=== PATIENT | male | born 1965 | race Caucasian/White ===

== ENCOUNTER 2018-03-10 08:11 | Outpatient (CLI) | payer OTHER ==
--- NOTE | 2018-03-10 15:33 | MRI Report ---
EXAM: RIGHT ELBOW MRI WITHOUT CONTRAST EXAM DATE: 03/10/2018 10:04 AM. CLINICAL HISTORY: Pain in right elbow. COMPARISON: None. TECHNIQUE: Multiplanar, multisequence T1-weighted and fluid-sensitive sequences of the elbow without contrast. Other: None. FINDINGS: Bones: No fractures or subluxations. No marrow edema. No bone lesions. Articular Cartilage: Unremarkable. Ligaments: The ulnar collateral, lateral ulnar collateral, radial collateral, and annular ligaments a re intact. Tendons: Common extensor tendon shows a partial-thickness tear involving about 80% of the distal shorty chment. 20% of the proximal attachment remains and is normal. Common flexor tendon is normal. Distal biceps tendon shows a high-grade partial-thickness tear involving about 90-95% of the cross-sectional diameter of the tendon, there is about an 8 mm focal fluid-filled gap at a segment of the tendon at the lateral aspect. Surrounding soft tissue swelling and edema. Brachialis attachment shows some abno rmal signal but is intact. Triceps attachment is normal. Musculature: Musculotendinous edema is seen in the distal biceps mechanism. Other: The cubital tunnel and ulnar nerve are unremarkable. No effusion. Subcutaneous edema and swell ing is seen over the anterior medial aspect of the elbow. Some also seen within the supinator muscle . IMPRESSION: 1. High-grade partial-thickness tear involving about 90-95% of the cross-sectional diameter of the di stal biceps tendon near its attachment onto the radial tubercle, there is about an 8 mm focal fluid-f illed gap at the lateral aspect of the distal tendon. Surrounding soft tissue swelling and edema. 2. Common extensor tendon also shows a partial-thickness tear involving about 80% of the distal attac hment. 20% of the proximal attachment remains and is normal. 3. Collateral ligament complexes appear unremarkable. 4. Bones, articular surfaces have a normal appearance. [facility]CULOS[facility] SECTION Referring Provider Line: [phone] SITE ID: [id number]
== END 2018-03-10 08:12 | disposition home or self-care (01) ==
LOC: DI 08:11
PROVIDERS: ATTEND Family Medicine
DX: S46.211A Strain of muscle, fascia and tendon of other parts of biceps, right arm, initial encounter (principal); S56.511A Strain of other extensor muscle, fascia and tendon at forearm level, right arm, initial encounter

== ENCOUNTER 2019-01-12 21:44 | Emergency (ER) | payer OTHER ==
--- NOTE | 2019-01-12 22:19 | ED Physician Documentation ---
PD HPI OVERDOSE - Stated complaint Stated Complaint: OVER INGESTED MAGNESIUM CHLORIDE - Chief complaint Chief Complaint: General - History obtained from History obtained from: Patient - History of Present Illness Timing - onset: Today (within one hour of ED arrival) Subtance(s) ingested: Single Associated symptoms: NVD (mild nausea). No: Decreased responsiveness, Altered mental status, Agitated, Abdominal pain, Palpitations, Dyspnea, Diaphoresis Recently seen: Not recently seen - Additional information Additional information: patient presents with who is also registered as a patient for same c/o. Patient's takes magnesium chloride for migraines. Danica, her pr epared what he thought was an appropriate dose for both of them (he said he wanted to take some because he thought it would be healthy to do so). The magnesium was purchased in bulk from [employer]. He did not follow the instructions on the label and miscalculated the dose. Shortly after they both ingested the dose, he recalculated and realized he had taken too much. He calculates he took over 7 grams. He and I then calculated the amount and agree that he actually took 9.9 grams. He is asymptomatic except for mild nausea. Review of Systems Constitutional: reports: Sweats Cardiac: reports: Reviewed and negative Respiratory: reports: Reviewed and negative GI: reports: Nausea. denies: Abdominal Pain, Vomiting, Constipation, Diarrhea Neurologic: reports: Reviewed and negative PD PAST MEDICAL HISTORY - Past Medical History Past Medical History: No Cardiovascular: None Respiratory: Other Endocrine/Autoimmune: None GI: None : None HEENT: None Psych: None Musculoskeletal: None Derm: Eczema - Past Surgical History Past Surgical History: Yes General: Colonoscopy HEENT: Cataracts, Tonsil/Adenoidectomy - Present Medications Home Medications: Ambulatory Orders Medication Instructions Recorded Confirmed Loratadine [Claritin] 10 mg PO DAILY 04/17/14 04/18/14 Fluticasone [Flonase] 1 spray ONIEL DAILY 04/18/14 04/18/14 - Allergies Allergies/Adverse Reactions: Allergies Allergy/AdvReac Type Severity Reaction Status Date / Time No Known Drug Allergies Allergy Verified 04/17/14 14:02 - Social History Does the pt smoke?: No Smoking Status: Never smoker Does the pt drink ETOH?: No Does the pt have substance abuse?: No Substance Use and Type: Marijuana - Immunizations Immunizations are current?: Yes - POLST Patient has POLST: No PD ED PE NORMAL - Vitals Vital signs reviewed: Yes - General General: Alert and oriented X 3, No acute distress, Well developed/nourished - HEENT HEENT: PERRL, EOMI, Moist mucous membranes - Cardiac Cardiac: RRR, No murmur - Respiratory Respiratory: No respiratory distress, Clear bilaterally - Abdomen Abdomen: Soft, Non tender - Derm Derm: Normal color, Warm and dry - Neuro Neuro: Alert and oriented X 3, 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, No motor deficit, No sensory deficit, Normal speech Eye Opening: Spontaneous Motor: Obeys Commands Verbal: Oriented GCS Score: 15 Results - Vitals Vitals: Vital Signs - 24 hr 01/12/19 01/13/19 21:50 00:02 Temperature 37.1 C 36.9 C Heart Rate 82 70 Respiratory 18 14 Rate Blood Pressure 175/78 H 160/90 H O2 Saturation 100 100 Oxygen O2 Source Room air - Labs Labs: Laboratory Tests 01/12/19 23:20 Sodium 138 Potassium 3.9 Chloride 102 Carbon Dioxide 29 Anion Gap 7.0 BUN 20 Creatinine 1.2 Estimated GFR (MDRD) 63 L Glucose 115 H Calcium 9.7 Phosphorus 3.9 Magnesium 2.8 PD MEDICAL DECISION MAKING - ED course Complexity details: reviewed results, re-evaluated patient, considered differential, d/w patient, d/w family ED course: Poison control was contacted and they recommend observation in ED for few hours, and can discharge if symptoms are limited to mild GI symptoms. After 2-3 hours ED observation, he was asymptomatic (nausea resolved) and was discharged. Departure - Departure Disposition: 01 Home, Self Care Clinical Impression: Accidental overdose Qualifiers: Encounter type: initial encounter Qualified Code(s): T50.901A - Poisoning by unspecified drugs, medicaments and biological substances, accidental (unintentional), initial encounter Condition: Good Instructions: ED Overdose Accidental Follow-Up: OLEGARIO ESCOTO MD [Primary Care Provider] - Discharge Date/Time: 01/13/19 00:11
[2019-01-12 23:43] LABS: CALCIUM 9.7 mg/dL (8.5-10.3); CREATININE 1.2 mg/dL (0.6-1.2); MAGNESIUM 2.8 mg/dL (1.7-2.8); PHOSPHORUS 3.9 mg/dL (2.5-4.6)
[2019-01-13 00:02] VITALS: BP 160/90
== END 2019-01-13 00:11 | disposition home or self-care (01) ==
LOC: ED 21:44
DX: T56.891A Toxic effect of other metals, accidental (unintentional), initial encounter (principal); R11.2 Nausea with vomiting, unspecified; R19.7 Diarrhea, unspecified
CPT/HCPCS: 36415; 80048; 83735; 84100; 99283

== ENCOUNTER 2022-03-24 10:02 | Outpatient (CLI) | payer OTHER ==
--- NOTE | 2022-03-25 13:15 | MRI Report ---
PROCEDURE: Shoulder RT W/O INDICATIONS: PAIN IN RIGHT SHOULDER TECHNIQUE: Noncontrast oblique coronal T2 fast spin echo with fat saturation, oblique sagittal T1 spin echo and T2 fast spin echo with fat saturation, axial T1 spin echo and T2 fast spin echo with fat saturation t hrough the shoulder. COMPARISON: None. FINDINGS: Image quality: Excellent. Rotator cuff: There is full-thickness tear of the superior fibers of the infraspinatus tendon. Partia l-thickness tear of the supraspinatus and subscapularis tendons. No rotator cuff muscle atrophy on s agittal images. Bones and bursae: No bone marrow contusions or fractures. Moderate acromioclavicular and glenohumera l joint degeneration. The acromion demonstrates conventional anatomy, without an os acromiale. Small glenohumeral joint effusion. Capsule and soft tissues: There is superior labral tear at the 12:00 position (series 601 image 14). In the absence of intra-articular contrast, the glenohumeral ligaments appear intact. There is inter stitial tear and/or tendinitis of the long head of the biceps tendon . The rotator interval appears normal, without fibrosis. The coracohumeral ligament is normal in thickness. IMPRESSION: 1. Full-thickness tear of the tear fibers of the infraspinous tendon. 2. Partial-thickness tear of the infraspinatus and subscapularis tendons. 3. Interstitial tear and/or tendinitis of the long head of the biceps tendon. 4. Moderate acromioclavicular and glenohumeral joint degeneration. 5. Superior labral tear at the 12:00 position. 6. Small glenohumeral joint effusion. Reviewed by: Hernandez Alvarenga MD on 03/25/2022 1:13 PM PDT Approved by: Hernandez Alvarenga MD on 03/25/2022 1:13 PM PDT Station ID: [id number]
== END 2022-03-24 10:03 | disposition home or self-care (01) ==
LOC: DI 10:02
PROVIDERS: ATTEND Family Medicine
DX: M75.121 Complete rotator cuff tear or rupture of right shoulder, not specified as traumatic (principal); S46.121A Laceration of muscle, fascia and tendon of long head of biceps, right arm, initial encounter; M75.81 Other shoulder lesions, right shoulder; M19.011 Primary osteoarthritis, right shoulder; S43.431A Superior glenoid labrum lesion of right shoulder, initial encounter; M25.411 Effusion, right shoulder

== ENCOUNTER 2022-04-10 14:45 | Outpatient (CLI) | payer OTHER ==
--- NOTE | 2022-04-10 16:00 | XRAY Report ---
PROCEDURE: Shoulder 3 View RT INDICATIONS: RIGHT SHOULDER PAIN TECHNIQUE: 4 views of the shoulder were acquired. COMPARISON: None. FINDINGS: Bones: No fractures or dislocations. No suspicious bony lesions. Visualized ribs appear intact. Soft tissues: No suspicious soft tissue calcifications. IMPRESSION: No evidence acute bony abnormality of the right shoulder. If clinical suspicion and/or symptoms persist, further assessment with repeat plain films or advanced imaging (e.g., CT, MRI, or bone scan) may be helpful for further assessment. Reviewed by: Terrence Ashraf MD on 04/10/2022 3:58 PM PDT Approved by: Terrence Ashraf MD on 04/10/2022 3:58 PM PDT Station ID: [id number]
== END 2022-04-10 23:59 | disposition home or self-care (01) ==
LOC: DI.WOS 14:45
PROVIDERS: ATTEND Physician Assistant
DX: M25.511 Pain in right shoulder (principal)

== ENCOUNTER 2023-10-13 13:27 | Outpatient (CLI) | payer OTHER | END 2023-10-13 13:28 | disposition home or self-care (01) | LOC: DI 13:27 | PROVIDERS: ATTEND Naturopath | DX: Z53.9 Procedure and treatment not carried out, unspecified reason (principal) ==

== ENCOUNTER 2023-10-29 15:29 | Outpatient (CLI) | payer OTHER ==
--- NOTE | 2023-10-29 16:04 | XRAY Report ---
PROCEDURE: Chest 2 View X-Ray INDICATIONS: HYPERTENSION TECHNIQUE: 2 views of the chest were acquired. COMPARISON: None. FINDINGS: Surgical changes and devices: None. Lungs and pleura: No pleural effusions or pneumothorax. Lungs are clear. Mediastinum: Mediastinal contours appear normal. Heart size is normal. Bones and chest wall: No suspicious bony lesions. Overlying soft tissues appear unremarkable. IMPRESSION: No acute cardiopulmonary process. Reviewed by: Terrence Ashraf MD on 10/29/2023 4:03 PM [facility] Approved by: Terrence Ashraf MD on 10/29/2023 4:03 PM [facility] Station ID: [id number]
== END 2023-10-29 15:30 | disposition home or self-care (01) ==
LOC: DI 15:29
PROVIDERS: ATTEND Naturopath
DX: I10 Essential (primary) hypertension (principal)